=== PATIENT | female | born 1985 | race Caucasian/White ===

== ENCOUNTER 2018-02-14 16:32 | Emergency (ER) | payer MEDICAID ==
[~2018-02-14] VITALS: Ht 175.3 cm; Wt 99.8 kg
[2018-02-14] MEDS ORDERED: PRENATA CHEWAB1 EACH PO (16:50)
[2018-02-14] MEDS ORDERED: ACTICIN 5% CREA60 G1 TOP (17:43)
[2018-02-14 17:50] VITALS: BP 107/56
== END 2018-02-14 17:51 | disposition home or self-care (01) ==
LOC: M.ERS 16:32
DX: O99.712 Diseases of the skin and subcutaneous tissue complicating pregnancy, second trimester (principal); B86 Scabies; F17.200 Nicotine dependence, unspecified, uncomplicated; Z3A.20 20 weeks gestation of pregnancy; Z88.1 Allergy status to other antibiotic agents; Z88.0 Allergy status to penicillin

== ENCOUNTER 2020-03-03 13:27 | Emergency (ER) | payer OTHER, MEDICAID ==
[~2020-03-03] VITALS: Ht 175.3 cm; Wt 116.6 kg
[~2020-03-03 13:27] MED LIST: ACTICIN 5% CREA60 G1 TOP; PRENATA CHEWAB1 EACH PO
[2020-03-03 13:50] LABS: URINE BILIRUBIN NEGATIVE (Negative); URINE BLOOD TRACE (Negative); URINE CLARITY CLEAR; URINE COLOR YELLOW; URINE GLUCOSE-RANDOM NEGATIVE (Negative); URINE KETONES NEGATIVE (Negative); URINE LEUKOCYTES-REFLEX NEGATIVE (Negative); URINE NITRITE-REFLEX NEGATIVE (Negative); URINE PROTEIN NEGATIVE (Negative)
[2020-03-03 14:11] LABS: ABSOLUTE EOSINOPHILS 0.2 thou/uL (0.0-0.7); ABSOLUTE LYMPHOCYTES 1.5 thou/uL (0.8-5.3); ABSOLUTE MONOCYTES 0.3 thou/uL (0.0-1.2); ABSOLUTE NEUTROPHILS 3.4 thou/uL (1.6-8.1); BASOPHILS 0.4 %; EOSINOPHILS 3.4 %; HEMATOCRIT 37.6 % (37.0-47.0); HEMOGLOBIN 12.5 gm/dL (12.0-15.0); LYMPHOCYTES 28.4 %; MCH 31.2 pg (26.0-34.0); MCHC 33.3 g/dL (28.0-37.0); MCV 93.7 fL (80.0-100.0); MONOCYTES 5.7 %; NUCLEATED RBCS 0 /100WBC; PLATELET COUNT* 218 thou/uL (150-400); POLYS 62.1 %; RBC 4.02 mil/uL (4.20-5.00); WBC 5.4 thou/uL (4.0-11.0)
[2020-03-03 14:38] LABS: CALCIUM 8.3 mg/dL (8.5-10.1); CREATININE 0.8 mg/dL (0.6-1.3); POTASSIUM 4.4 mmol/L (3.5-5.1)
[2020-03-03 14:48] LABS: ALBUMIN 3.7 g/dL (3.4-5.0); MAGNESIUM 2.4 mg/dL (1.8-2.4); TOTAL BILIRUBIN 0.7 mg/dL (<0.1-1.0); TOTAL PROTEIN 6.7 g/dL (6.4-8.2)
[2020-03-03] MEDS ORDERED: ZOFRAN ODT4 MG PO (14:51)
[2020-03-03 15:33] VITALS: BP 133/63
--- NOTE | 2020-03-03 18:18 | EKG ---
[place] [address] ELECTROCARDIOGRAM REPORT Name: BLANKA DE LA VEGA Room: [facility]#: [id number] Admission: 03/03/20 Attend Phys: Discharge: 03/03/20 Date of : 89 Date of Service: 03/03/20 1353 Report #: [id number] THIS REPORT FOR: //name// [facility] ED Test Date: 2020-03-03 Test Time: 13:53:45 Pat Name: BLANKA DE LA VEGA Department: Room: Gender: F Inseminator: [place] : 1985 Requested By: Naomy Ragland Order Number: [id number] MD: Catalino Alford Measurements Intervals [place] Rate: 74 P: 42 ID: [id number] QRS: 8 QRSD: 97 T: 22 QT: 385 QTc: 428 Interpretive Statements Sinus rhythm ST elev, probable normal early repol pattern Baseline wander in lead(s) V2 No previous ECG available for comparison Electronically Signed On 03-03-2020 18:18:07 [employer] by Catalino Aflord [email or web address] <ELECTRONICALLY SIGNED> By: Catalino Alford MD, FACC 03/03/20 1818 1353 1353 Catalino Alford MD, FAC /EPI
== END 2020-03-03 15:33 | disposition home or self-care (01) ==
LOC: M.ERS 13:27
PROVIDERS: Nurse Practitioner Family
DX: K52.9 Noninfective gastroenteritis and colitis, unspecified (principal); R07.89 Other chest pain; Z20.828 Contact with and (suspected) exposure to other viral communicable diseases; Z88.0 Allergy status to penicillin; Z88.1 Allergy status to other antibiotic agents

== ENCOUNTER 2020-04-29 10:33 | Emergency (ER) | payer OTHER, MEDICAID ==
[~2020-04-29] VITALS: Ht 175.3 cm; Wt 128.4 kg
[~2020-04-29 10:33] MED LIST changes: +ZOFRAN ODT4 MG PO
[2020-04-29 11:18] LABS: ABSOLUTE EOSINOPHILS 0.3 thou/uL (0.0-0.7); ABSOLUTE LYMPHOCYTES 1.5 thou/uL (0.8-5.3); ABSOLUTE MONOCYTES 0.3 thou/uL (0.0-1.2); ABSOLUTE NEUTROPHILS 5.3 thou/uL (1.6-8.1); BASOPHILS 0.4 %; EOSINOPHILS 3.7 %; HEMATOCRIT 36.9 % (37.0-47.0); HEMOGLOBIN 12.1 gm/dL (12.0-15.0); LYMPHOCYTES 20.3 %; MCH 31.1 pg (26.0-34.0); MCHC 32.9 g/dL (28.0-37.0); MCV 94.5 fL (80.0-100.0); MONOCYTES 4.2 %; MPV 8.2 fl. (7.2-11.1); NUCLEATED RBCS 0 /100WBC; PLATELET COUNT* 250 thou/uL (150-400); POLYS 71.4 %; RDW-CV 14.4 % (10.5-14.5); WBC 7.4 thou/uL (4.0-11.0)
[2020-04-29 11:26] LABS: CALCIUM 8.3 mg/dL (8.5-10.1); CREATININE 0.9 mg/dL (0.6-1.3); POTASSIUM 3.9 mmol/L (3.5-5.1)
[2020-04-29 11:31] LABS: ALBUMIN 3.7 g/dL (3.4-5.0); TOTAL BILIRUBIN 0.4 mg/dL (<0.1-1.0); TOTAL PROTEIN 7.5 g/dL (6.4-8.2)
[2020-04-29 12:56] VITALS: BP 108/72
== END 2020-04-29 12:57 | disposition home or self-care (01) ==
LOC: M.ERS 10:33
PROVIDERS: Physician Assistant
DX: R19.7 Diarrhea, unspecified (principal); Z88.1 Allergy status to other antibiotic agents; Z88.0 Allergy status to penicillin

== ENCOUNTER 2020-11-12 20:19 | Emergency (ER) | payer OTHER, MEDICAID ==
[~2020-11-12] VITALS: Ht 175.3 cm; Wt 104.3 kg
[2020-11-12] MEDS ORDERED: LITHIUM CARBON150 MG PO (20:43)
[2020-11-12] MEDS ORDERED: PROPRANOLOL 20M20 M1 (20:44)
[2020-11-12] MEDS ORDERED: PROAIR HFA8.5 GM INH (21:38)
[2020-11-12] MEDS ORDERED: DECADRON6 MG PO (21:38)
[2020-11-12 21:56] VITALS: BP 151/87
== END 2020-11-12 21:57 | disposition home or self-care (01) ==
LOC: M.ERS 20:19
DX: U07.1 COVID-19 (principal); Z88.1 Allergy status to other antibiotic agents; Z88.0 Allergy status to penicillin; Z88.8 Allergy status to other drugs, medicaments and biological substances

== ENCOUNTER 2020-11-20 08:56 | Emergency (ER) | payer OTHER, MEDICAID ==
[~2020-11-20] VITALS: Ht 175.3 cm; Wt 113.4 kg
[~2020-11-20 08:56] MED LIST changes: +DECADRON6 MG PO; +LITHIUM CARBON150 MG PO; +PROAIR HFA8.5 GM INH; +PROPRANOLOL 20M20 M1
[2020-11-20 09:41] VITALS: BP 127/62
== END 2020-11-20 09:46 | disposition left against medical advice (07) ==
LOC: M.ERS 08:56
DX: Z01.84 Encounter for antibody response examination (principal); Z53.21 Procedure and treatment not carried out due to patient leaving prior to being seen by health care provider